=== PATIENT | male | born 1930 | race Caucasian/White ===

== ENCOUNTER → 2017-10-22 | Outpatient (CLI) | payer MEDICARE ==
--- NOTE | 2017-10-22 16:54 | XR ---
EXAMINATION TYPE: XR chest 2V DATE OF EXAM: 10/22/2017 COMPARISON: 01/15/2017 HISTORY: Cough and short of breath TECHNIQUE: Frontal and lateral views of the chest are obtained. FINDINGS: Heart and mediastinum are normal. Lungs are clear. There is some spurring in the thoracic spine. Bony thorax is intact. There is no pleural effusion. IMPRESSION: No active cardiac pulmonary disease. No change.
== END | disposition home or self-care (01) ==
LOC: RADXRMAIN 16:25
PROVIDERS: ATTEND Internal Medicine Cardiovascular Disease
DX: R05 Cough (principal); R06.02 Shortness of breath
CPT/HCPCS: 71046

== ENCOUNTER 2020-02-19 09:14 | Inpatient (IN) | payer MEDICARE ==
[2020-02-19 12:25] LABS: Glucose,Whole Blood 218 mg/dL (75-99)
[2020-02-19 17:31] LABS: Glucose,Whole Blood 232 mg/dL (75-99)
[2020-02-19] MEDS ORDERED: FLUTICASONE 50MCG/SPRAY NASAL 16GM EA NOSTRIL PRN (18:31)
[2020-02-19] MEDS ORDERED: ALPRAZolam 0.25 MG TAB PO PRN (18:31)
[2020-02-19] MEDS ORDERED: NITROGLYCERIN SL TABS 0.4 MG TAB SUBLINGUAL PRN (18:31)
[2020-02-19] MEDS: IPRATROPIUM-ALBUTEROL 3 ML NEB INHALATION PRN (18:49)
[2020-02-19] MEDS: SYMBICORT 160-4.5 MCG INHALER INHALATION SCH (18:51)
[2020-02-19] MEDS: ASPIRIN 81 MG PO SCH (20:18)
[2020-02-19] MEDS: ISOSORBIDE MONONITRATE ER 30 MG TAB.ER.24H PO SCH (20:18)
[2020-02-19] MEDS: FUROSEMIDE 40 MG TAB PO SCH (20:18)
[2020-02-19] MEDS: METOPROLOL TARTRATE 25 MG TAB PO SCH (20:19)
[2020-02-19] MEDS: LOSARTAN 50 MG TAB PO SCH (20:19)
[2020-02-19] MEDS: PENTOXIFYLLINE 400 MG TABLET.ER PO SCH (20:22)
[2020-02-19] MEDS: RANOLAZINE 500 MG TAB.ER.12H PO SCH (20:22)
[2020-02-19] MEDS: INSULIN ASPART (NovoLOG) 100 UNIT/ML VIAL SQ SCH (20:28)
[2020-02-19 20:49] LABS: Glucose,Whole Blood 279 mg/dL (75-99)
[2020-02-19] MEDS ORDERED: AZITHROMYCIN 500 MG in SODIUM CHLORIDE 0.9% 250 ML IVPB SCH (21:00)
[2020-02-19] MEDS ORDERED: PRAVASTATIN SODIUM 40 MG TAB PO SCH (21:00)
[2020-02-20] MEDS: PENTOXIFYLLINE 400 MG TABLET.ER PO SCH (06:16)
[2020-02-20] MEDS: INSULIN ASPART (NovoLOG) 100 UNIT/ML VIAL SQ SCH (06:17)
[2020-02-20 06:21] LABS: Glucose,Whole Blood 187 mg/dL (75-99)
[2020-02-20] MEDS ORDERED: PANTOPRAZOLE 40 MG TABLET PO SCH (07:30)
[2020-02-20] MEDS: IPRATROPIUM-ALBUTEROL 3 ML NEB INHALATION PRN (07:40)
[2020-02-20 07:58] LABS: Basophils % (A) 0 %; Eosinophils % (A) 0 %; HCT 41.4 % (39.0-53.0); HGB 13.3 gm/dL (13.0-17.5); Lymphocytes % (A) 26 %; MCHC 32.1 g/dL (31.0-37.0); MCV 102.8 fL (80.0-100.0); Macrocytosis Slight; Mean Platelet Volume 6.4; Monocytes % (A) 6 %; Neutrophils # (A) 10.1 k/uL (1.3-7.7); Neutrophils % (A) 65 %; Platelet Count 386 k/uL (150-450); RBC 4.03 m/uL (4.30-5.90); WBC 15.4 k/uL (3.8-10.6)
[2020-02-20 08:04] LABS: Potassium 4.6 mmol/L (3.5-5.1)
[2020-02-20 08:15] VITALS: BP 164/91; PULSE 94; RESP 20; TEMP 97.6
[2020-02-20] MEDS: LOSARTAN 50 MG TAB PO SCH (08:15)
[2020-02-20] MEDS: METOPROLOL TARTRATE 25 MG TAB PO SCH (08:15)
[2020-02-20] MEDS: ASPIRIN 81 MG PO SCH (08:15)
[2020-02-20] MEDS: FUROSEMIDE 40 MG TAB PO SCH (08:16)
[2020-02-20] MEDS: RANOLAZINE 500 MG TAB.ER.12H PO SCH (08:16)
[2020-02-20] MEDS: ISOSORBIDE MONONITRATE ER 30 MG TAB.ER.24H PO SCH (08:16)
[2020-02-20] MEDS: SYMBICORT 160-4.5 MCG INHALER INHALATION SCH (08:31)
[2020-02-20] MEDS ORDERED: APIXABAN 5 MG TAB PO SCH (09:00)
[2020-02-20] MEDS ORDERED: LINAGLIPTIN 5 MG TABLET PO SCH (09:00)
--- NOTE | 2020-02-20 09:24 | XR ---
EXAMINATION TYPE: XR chest 2V DATE OF EXAM: 02/20/2020 COMPARISON: Prior chest x-ray 10/22/2017, a 12/23/2019 HISTORY: Shortness of breath and cough TECHNIQUE: Frontal and lateral views of the chest are obtained. FINDINGS: Patient is rotated. There are overlying cardiac leads. Aorta is dense. Prominent lung volum es suggest underlying COPD. There are coronary artery calcifications. Retrocardiac increased density persists, findings suggestive of some bronchial wall thickening. There is no pleural effusion or pneu mothorax seen. The cardiac silhouette size is within normal limits. The osseous structures are int act. IMPRESSION: There may be basilar scarring or bronchiectasis, correlate to exclude pneumonia, bronchi tis
[2020-02-20] MEDS ORDERED: MULTIVITAMINS, THERA 1 EACH TAB PO SCH (12:00)
--- NOTE | 2020-03-12 00:17 | P.HPIM ---
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 He has xanax for anxiety and states it works well for him. He uses no assistive device. He drives. He has a nebulizer. Smoking Status: Former smoker Past Alcohol Use History: None Reported Additional Past Alcohol Use History / Comment(s): STARTED SMOKING AT AGE 20- SMOKED 1.5 PPD PRIOR TO QUITTING HE CHANGED OVER TO A PIPE THEN QUIT 30 YEARS AGO Past Drug Use History: None Reported - Past Family History Father Additional Family Medical History / Comment(s): ENLARGED HEART. Father at the age of 87yrs. Mother History Unknown: Yes Family Medical History: Respiratory Disorder Additional Family Medical History / Comment(s): Mother had lung disease. She had lung surgery. She at the age of 82 yrs. Medications and Allergies Home Medications Medication Instructions Recorded Confirmed Type Fluticasone Nasal [place] [Flonase 2 spray EA NOSTRIL DAILY PRN 09/17/15 02/19/20 History Nasal [place]] ALPRAZolam [Xanax] 0.25 mg PO BID PRN #10 tab 09/22/15 02/19/20 Rx Furosemide [Lasix] 40 mg PO DAILY #30 tablet 09/22/15 02/19/20 Rx Isosorbide Mononitrate ER [Imdur] 30 mg PO DAILY #30 tab.er.24h 09/22/15 02/19/20 Rx Nitroglycerin Sl Tabs [Nitrostat] 0.4 mg SUBLINGUAL Q5M PRN #30 tab 09/22/15 02/19/20 Rx Pantoprazole [Protonix] 40 mg PO AC-BRKFST #30 tablet.dr 09/22/15 02/19/20 Rx Aspirin EC [Ecotrin Low Dose] 81 mg PO DAILY 12/26/15 02/19/20 History Multivitamins, Thera [Multivitamin 1 each PO DAILY@1200 #30 tab 12/28/15 02/19/20 Rx (formulary)] Ranolazine [Ranexa] 500 mg PO Q12HR #60 tab.er.12h 12/28/15 02/19/20 Rx Albuterol Sulfate [Ventolin HFA] 2 puff INHALATION RT-Q4H PRN 02/19/20 02/19/20 History Budesonide-Formot 160-4.5 Mcg 2 puff INHALATION RT-BID 02/19/20 02/19/20 History [Symbicort 160-4.5 Mcg Inhaler] Ipratropium-Albuterol Nebulize 3 ml INHALATION RT-Q4H PRN 02/19/20 02/19/20 History [Duoneb 0.5 mg-3 mg/3 ml Soln] Irbesartan [Avapro] 150 mg PO DAILY 02/19/20 02/19/20 History Metoprolol Tartrate [Lopressor] 25 mg PO DAILY 02/19/20 02/19/20 History Pentoxifylline [TRENtal] 400 mg PO AC-BID 02/19/20 02/19/20 History Pravastatin Sodium [Pravachol] 40 mg PO HS 02/19/20 02/19/20 History glipiZIDE [Glucotrol] 5 mg PO AC-BRKFST 02/19/20 02/19/20 History sitaGLIPtin [Januvia] 50 mg PO DAILY 02/19/20 02/19/20 History Allergies Allergy/AdvReac Type Severity Reaction Status Date / Time grass pollen Allergy Unknown Verified 02/19/20 13:36 tetanus and diphtheria Allergy Rash/Hives Verified 02/19/20 13:36 toxoids [tetanus & diphtheria toxoids] Results CBC & Chem 7: 02/20/20 07:31 02/20/20 07:31 Thrombosis Risk Factor Assmnt - Choose All That Apply Each Factor Represents 1 point: Serious lung disease incl. pneumonia (< 1month) Each Risk Factor Represents 3 Points: Age 75 years or older Thrombosis Risk Factor Assessment Total Risk Factor Score: 4 Thrombosis Risk Factor Assessment Level: Moderate Risk
--- NOTE | 2020-03-12 00:18 | P.DS ---
Providers Date of admission: 02/19/20 11:31 Expected date of discharge: 02/20/20 Attending physician: Deandre Mcdermott MD Consults: 02/19/20 20:36 Consult Physician Routine Consulting Provider: Gurinder Dietz Consult Reason/Comments: PNA/SOB Do you want consulting provider notified?: Yes, Notify in am Consult Physician Routine Consulting Provider: Maciej Singh Consult Reason/Comments: A-FIB RVR Do you want consulting provider notified?: Yes, Notify in am Primary care physician: Deandre Mcdermott MD Hospital Course: PATIENT LEFT AMA PRIOR TO EVALUATION Plan - Discharge Summary Discharge Rx Participant: No New Discharge Prescriptions: No Action Fluticasone Nasal [place] [Flonase Nasal [place]] 2 spray EA NOSTRIL DAILY PRN PRN Reason: Allergy Symptoms ALPRAZolam [Xanax] 0.25 mg PO BID PRN #10 tab PRN Reason: Anxiety Isosorbide Mononitrate ER [Imdur] 30 mg PO DAILY #30 tab.er.24h Nitroglycerin Sl Tabs [Nitrostat] 0.4 mg SUBLINGUAL Q5M PRN #30 tab PRN Reason: Chest Pain Pantoprazole [Protonix] 40 mg PO AC-BRKFST #30 tablet.dr Furosemide [Lasix] 40 mg PO DAILY #30 tablet Aspirin EC [Ecotrin Low Dose] 81 mg PO DAILY Multivitamins, Thera [Multivitamin (formulary)] 1 each PO DAILY@1200 #30 tab Ranolazine [Ranexa] 500 mg PO Q12HR #60 tab.er.12h Budesonide-Formot 160-4.5 Mcg [Symbicort 160-4.5 Mcg Inhaler] 2 puff INHALATION RT-BID Metoprolol Tartrate [Lopressor] 25 mg PO DAILY Irbesartan [Avapro] 150 mg PO DAILY Ipratropium-Albuterol Nebulize [Duoneb 0.5 mg-3 mg/3 ml Soln] 3 ml INHALATION RT-Q4H PRN PRN Reason: Shortness Of Breath glipiZIDE [Glucotrol] 5 mg PO AC-BRKFST sitaGLIPtin [Januvia] 50 mg PO DAILY Pravastatin Sodium [Pravachol] 40 mg PO HS Pentoxifylline [TRENtal] 400 mg PO AC-BID Albuterol Sulfate [Ventolin HFA] 2 puff INHALATION RT-Q4H PRN PRN Reason: Shortness Of Breath Discharge Medication List Fluticasone Nasal [place] [Flonase Nasal [place]] 2 spray EA NOSTRIL DAILY PRN 09/17/15 [History] ALPRAZolam [Xanax] 0.25 mg PO BID PRN #10 tab 09/22/15 [Rx] Furosemide [Lasix] 40 mg PO DAILY #30 tablet 09/22/15 [Rx] Isosorbide Mononitrate ER [Imdur] 30 mg PO DAILY #30 tab.er.24h 09/22/15 [Rx] Nitroglycerin Sl Tabs [Nitrostat] 0.4 mg SUBLINGUAL Q5M PRN #30 tab 09/22/15 [Rx] Pantoprazole [Protonix] 40 mg PO AC-BRKFST #30 tablet.dr 09/22/15 [Rx] Aspirin EC [Ecotrin Low Dose] 81 mg PO DAILY 12/26/15 [History] Multivitamins, Thera [Multivitamin (formulary)] 1 each PO DAILY@1200 #30 tab 0 12/28/15 [Rx] Ranolazine [Ranexa] 500 mg PO Q12HR #60 tab.er.12h 12/28/15 [Rx] Albuterol Sulfate [Ventolin HFA] 2 puff INHALATION RT-Q4H PRN 02/19/20 [History] Budesonide-Formot 160-4.5 Mcg [Symbicort 160-4.5 Mcg Inhaler] 2 puff INHALATION RT-BID 02/19/20 [History] Ipratropium-Albuterol Nebulize [Duoneb 0.5 mg-3 mg/3 ml Soln] 3 ml INHALATION RT-Q4H PRN 02/19/20 [History] Irbesartan [Avapro] 150 mg PO DAILY 02/19/20 [History] Metoprolol Tartrate [Lopressor] 25 mg PO DAILY 02/19/20 [History] Pentoxifylline [TRENtal] 400 mg PO AC-BID 02/19/20 [History] Pravastatin Sodium [Pravachol] 40 mg PO HS 02/19/20 [History] glipiZIDE [Glucotrol] 5 mg PO AC-BRKFST 02/19/20 [History] sitaGLIPtin [Januvia] 50 mg PO DAILY 02/19/20 [History] Discharge Disposition: Left Against Medical Advice
== END 2020-02-20 08:41 | disposition left against medical advice (07) | DRG 310 ==
LOC: 3SCARD 11:31
PROVIDERS: ADMIT Internal Medicine; ATTEND Internal Medicine
DX: I48.91 Unspecified atrial fibrillation (principal); E78.5 Hyperlipidemia, unspecified; E11.9 Type 2 diabetes mellitus without complications; F41.9 Anxiety disorder, unspecified; I11.0 Hypertensive heart disease with heart failure; I25.10 Atherosclerotic heart disease of native coronary artery without angina pectoris; M19.90 Unspecified osteoarthritis, unspecified site; J44.9 Chronic obstructive pulmonary disease, unspecified; I50.9 Heart failure, unspecified; I25.2 Old myocardial infarction; Z79.51 Long term (current) use of inhaled steroids; Z79.82 Long term (current) use of aspirin; Z79.84 Long term (current) use of oral hypoglycemic drugs; Z79.899 Other long term (current) drug therapy; Z87.11 Personal history of peptic ulcer disease; Z87.891 Personal history of nicotine dependence; Z82.49 Family history of ischemic heart disease and other diseases of the circulatory system; Z83.6 Family history of other diseases of the respiratory system; Z88.7 Allergy status to serum and vaccine; Z91.09 Other allergy status, other than to drugs and biological substances; Z87.01 Personal history of pneumonia (recurrent)
CPT/HCPCS: 71046; 80048; 84145; 85025; 94640